=== PATIENT | male | born 1950 | race Hispanic/Latino ===

== ENCOUNTER 2016-09-16 14:59 | Emergency (ER) | payer OTHER ==
[2016-09-16 14:59] VITALS: BMI 28.0
[2016-09-16 15:10] VITALS: BP 130/84; PULSE 77; RESP 20; TEMP 97.7; O2SAT 95
--- NOTE | 2016-09-16 15:48 | C.PDOC ---
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 last tdap more than [address] Crockett, who is caring for patient on floor. pt ( Tammy Parekh) has agreed to rapid hiv per pt (Adriana George) <Dori Maynard - Last Filed: 09/16/16 16:49> <Adriana George - Last Filed: 09/16/16 17:33> Chief Complaint (Nursing): Needle Stick Past Medical History - Medical History PMH: Anemia (LOW IRON) Denies: Chronic Kidney Disease - Social History Hx Alcohol Use: No Hx Substance Use: No <Adriana George - Last Filed: 09/16/16 17:33> Vital Signs: Last Vital Signs Temp 97.7 F 09/16/16 15:09 Pulse 77 09/16/16 15:09 Resp 20 09/16/16 15:09 BP 130/84 09/16/16 15:09 Pulse Ox 95 09/16/16 17:05 - [facility] Procedures CLOSED ENDOSCOPIC BIOPSY OF LARGE INTESTINE (04/23/13) ENDOSCOPIC BIOPSY OF RECTUM (01/29/13) ING HERNIA REP-GRAFT NOS (02/25/14) ED Course And Treatment O2 Sat by Pulse Oximetry: 95 <Adriana George - Last Filed: 09/16/16 17:33> Supervising Attending Note - Supervising Attending Note The Documented history was done by the: Physician Director Hair The documented physical exam was done by the: Physician Director Hair The documented procedures were done by the: Physician Director Hair - Attestation: I have personally seen and examined this patient.: Yes I have fully participated in the care of the patient.: Yes I have reviewed all pertinent clinical information, including history, physical exam and plan: Yes <CaesarDori - Last Filed: 09/16/16 16:49> <Adriana George - Last Filed: 09/16/16 17:33> - Notes: Notes:: ACCID NEEDLE STICK TODAY. PS PERSON HE WAS DRAWING BLOOD FROM NO KNOWN HO HIV. PERSON GIVES VERBAL CONSENT FOR HIV TESTING. PMD OF PERSON DR MIGUEL FERRARI ( Dori Maynard) Disposition <Dori Maynard - Last Filed: 09/16/16 16:49> Counseled Patient/Family Regarding: Studies Performed, Diagnosis, Need For Followup, Rx Given - Disposition Disposition Time: 17:29 <Adriana George - Last Filed: 09/16/16 17:33> - Disposition Disposition: HOME/ ROUTINE Condition: STABLE Additional Instructions: Follow up with employee health in 1-2 days. Take medications as prescribed. Prescriptions: Dolutegravir Sodium [Tivicay] 50 mg PO DAILY #2 tab Emtricitabine/Tenofovir (Tdf) [Truvada 200 mg-300 mg Tablet] 1 each PO DAILY #2 tablet Forms: General Discharge Instructions - Clinical Impression Clinical Impression: Needle stick injury
[2016-09-16] MEDS ORDERED: Emtricitabine-Tenofovir 200 mg-300 mg Tab PO STA (16:58)
[2016-09-16] MEDS ORDERED: Tetanus/Diphtheria Toxoids 0.5 ml Syringe IM ONE ×2 (16:58→17:16)
[2016-09-16 17:24] LABS: BASO % 0.6 % (0.0-2.0); EOS # 0.1 K/uL (0.0-0.7); EOS % 1.3 % (0.0-4.0); HEMATOCRIT 43.1 % (35.0-51.0); LYMPH # 1.2 K/uL (1.0-4.3); LYMPH % 21.3 % (20.0-40.0); MEAN CORPUSCULAR HEMOGLOBIN 29.8 pg (27.0-31.0); MEAN CORPUSCULAR HGB CONC 33.1 g/dL (33.0-37.0); MEAN PLATELET VOLUME 7.9 fL (7.2-11.7); MONO # 0.5 K/uL (0.0-0.8); MONO % 8.3 % (0.0-10.0); RED CELL DISTRIBUTION WIDTH 14.7 % (11.5-14.5); WHITE BLOOD COUNT 5.6 K/uL (4.8-10.8)
[2016-09-16 17:34] LABS: RBC URINE 12 /hpf (0-3); URINE BACTERIA RARE (<OCC); URINE BILIRUBIN NEGATIVE (NEGATIVE); URINE BLOOD 1+ (NEGATIVE); URINE COLOR Yellow (YELLOW); URINE GLUCOSE (UA) NORMAL (Normal); URINE KETONE NEGATIVE (NEGATIVE); URINE LEUKOCYTE ESTERASE NEG Leu/uL (Negative); URINE PROTEIN NEGATIVE (NEGATIVE); URINE UROBILINOGEN NORMAL mg/dL (0.2-1.0); WBC URINE 2 /hpf (0-5)
[2016-09-16 17:41] LABS: CHLORIDE 103 mmol/L (98-107)
[2016-09-16 17:42] LABS: POTASSIUM 4.1 mmol/L (3.6-5.2); SODIUM 141 mmol/L (132-148)
[2016-09-16 17:44] LABS: ALB/GLOB RATIO 1.3 (1.0-2.1); ALKALINE PHOSPHATASE 66 U/L (38-126); ALT/SGPT 16 U/L (21-72); AMYLASE 95 U/L (30-110); AST/SGOT 31 U/L (17-59); BLOOD UREA NITROGEN 17 mg/dL (9-20); CALCIUM 8.8 mg/dl (8.6-10.4); CARBON DIOXIDE 27 mmol/L (22-30); GFR AFRICAN-AMERICAN > 60; GLUCOSE,RANDOM 89 mg/dL (75-110); TOTAL PROTEIN 7.9 g/dL (6.3-8.3)
== END 2016-09-16 17:38 | disposition home or self-care (01) ==
LOC: C.ER 14:59
DX: S69.92XA Unspecified injury of left wrist, hand and finger(s), initial encounter (principal); W46.0XXA Contact with hypodermic needle, initial encounter; Y92.239 Unspecified place in hospital as the place of occurrence of the external cause; Z23 Encounter for immunization

== ENCOUNTER → 2017-07-25 | Day surgery (SDC) | payer OTHER ==
[2017-07-18 07:52] VITALS: BMI 28.8
[~2017-07-25] MED LIST: Bupivacaine HCl 0.5% PF (30 ml) Inj ONE; Lactated Ringer's 1,000 ML IV ONE; Lidocaine 4% (Laryng-O-Jet) Kit MM ONE; Lidocaine/Epinephrine 1% 1:100000 10 ML IJ ONE; Midazolam 2 MG/2 ML VIAL ONE; Neostigmine Methylsulfate 3mg/3ml Syringe IV ONE; Oxycodone/Acetaminophen 5/325 mg Tab PO PRN; Propofol 10 mg/ml Inj (20 ML) ONE; ceFAZolin 1 gm in NS 2 GM/200 ML BAG IVPB ONE
--- NOTE | 2017-07-25 13:19 | PCM.SURG1 ---
Surgeon's Initial Post Op Note - Surgeon's Notes Surgeon: Dr. Avelar Operations And Maintenance Specialist: Mallory Dominique, PGY2; Asia Knapp, PGY1; Beltran Eastman OMS3 Type of Anesthesia: General Endo Pre-Operative Diagnosis: Ventral hernia Operative Findings: Ventral hernia approximately 3cm in diameter Post-Operative Diagnosis: same Operation Performed: open ventral hernia repair with mesh Specimen/Specimens Removed: none Estimated Blood Loss: EBL {In ML}: 5 Blood Products Given: N/A Drains Used: No Drains Post-Op Condition: Fair Date of Surgery/Procedure: 07/25/17 Time of Surgery/Procedure: 12:00
[2017-07-25] MEDS: HYDROmorphone 0.5 mg/0.5 ml ISec IVP PRN ×2 (13:43→14:07)
[2017-07-25 16:08] VITALS: BP 136/72; PULSE 64; RESP 16; TEMP 97.7; O2SAT 95
--- NOTE | 2017-07-25 22:14 | OP ---
PROCEDURE DATE: 07/25/2017 PREOPERATIVE DIAGNOSIS: Ventral hernia. POSTOPERATIVE DIAGNOSIS: Ventral hernia. PROCEDURE: Repair of ventral hernia with a Ventrio mesh, 8 x 12 cm. SURGEON: Casey Avelar Jr., MD SCHOOL BUS DRIVER/CUSTODIAN: Dr. Dominique and . TYPE OF ANESTHESIA: General. ANESTHESIA ADMINISTERED BY: Sofi . ESTIMATED BLOOD LOSS: 5 mL. 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 OPERATIVE FINDINGS: No bowel was involved in this. 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 The omentum was reduced. Hemostasis was obtained. The mesh was positioned in the preperitoneal space and sutured to the underlying fascia. Skin was then closed with subcuticular closure. Casey Avelar Jr., MD cc: Dr. Karthikeyan Cross
== END | disposition home or self-care (01) ==
LOC: C.SDS 08:38
PROVIDERS: ATTEND Surgery Vascular Surgery
DX: K43.9 Ventral hernia without obstruction or gangrene (principal)
CPT/HCPCS: 49561; 49568; J0690; J1100; J1170; J2250; J2405; J2704; J2710; J3010; J7120

== ENCOUNTER 2017-08-29 06:40 | Day surgery (SDC) | payer OTHER ==
[2017-07-18 07:52] VITALS: BMI 28.8
[2017-08-29] MEDS ORDERED: Propofol 10 mg/ml Inj (20 ML) ONE (07:59)
[2017-08-29] MEDS ORDERED: Lactated Ringer's 1,000 ML IV ONE (08:05)
--- NOTE | 2017-08-29 08:35 | CP.SDSHP ---
Same Day Surgery H & P - History Proposed Procedure: colonosocpy Pre-Op Diagnosis: colitis - Allergies Allergies: Allergies No Known Allergies Allergy (Verified 08/29/17 07:11) - Physical Exam Vital Signs: Vital Signs 08/29/17 07:00 Temperature 96.7 F L Pulse Rate 60 Respiratory 16 Rate Blood Pressure 116/79 O2 Sat by Pulse 97 Oximetry Mental Status: Alert & Oriented x3 Neuro: WNL Heart: WNL Lungs: WNL GI: WNL - {Optional Preform as Required} Abdomen: WNL - Impression Impression: colitis Pt. Evaluated Today:Candidate for Anesthesia & Procedure: Yes - Date & Time Date: 08/29/17 Time: 08:00 Short Stay Discharge - Short Stay Discharge Admitting Diagnosis/Reason for Visit: COLITIS Disposition: HOME/ ROUTINE
[2017-08-29 09:00] VITALS: TEMP 97.8
[2017-08-29 10:10] VITALS: BP 122/77; PULSE 58; RESP 15; O2SAT 99
== END 2017-08-29 10:00 | disposition home or self-care (01) ==
LOC: C.ENDO 06:40
PROVIDERS: ATTEND Internal Medicine Gastroenterology
DX: K52.89 Other specified noninfective gastroenteritis and colitis (principal); K64.1 Second degree hemorrhoids
CPT/HCPCS: 45380; 88305; J2704; J7120

== ENCOUNTER 2018-05-05 10:53 | Outpatient (CLI) | payer OTHER | END 2018-05-05 10:54 | disposition home or self-care (01) | LOC: C.LAB 10:53 | DX: K51.90 Ulcerative colitis, unspecified, without complications (principal); D64.9 Anemia, unspecified ==

== ENCOUNTER 2018-08-18 11:35 | Outpatient (CLI) | payer OTHER | END 2018-08-18 11:36 | disposition home or self-care (01) | LOC: C.LAB 11:35 | DX: D64.9 Anemia, unspecified (principal); K51.90 Ulcerative colitis, unspecified, without complications ==